=== PATIENT | female | born 1980 | race Caucasian/White ===

== ENCOUNTER 2021-07-09 16:38 | Emergency (ER) | payer OTHER ==
[~2021-07-09] VITALS: Ht 182.9 cm; Wt 152.9 kg
[~2021-07-09 16:38] MED LIST: PROAIR RESPICL90 MCG INH
[2021-07-09] MEDS ORDERED: CEPHALEXIN500 MG PO (20:17)
== END 2021-07-09 20:27 | disposition home or self-care (01) ==
LOC: ED 16:38
DX: N39.0 Urinary tract infection, site not specified (principal); F17.200 Nicotine dependence, unspecified, uncomplicated; Z88.0 Allergy status to penicillin
CPT/HCPCS: 81001; 99283

== ENCOUNTER 2021-09-02 10:55 | Emergency (ER) | payer OTHER ==
[~2021-09-02] VITALS: Ht 182.9 cm; Wt 150.2 kg
[~2021-09-02 10:55] MED LIST changes: +CEPHALEXIN500 MG PO
[2021-09-02] MEDS ORDERED: PREDNISONE20 MG PO (11:42)
== END 2021-09-02 12:11 | disposition home or self-care (01) ==
LOC: ED 10:55
DX: M54.42 Lumbago with sciatica, left side (principal); F17.200 Nicotine dependence, unspecified, uncomplicated; Z88.0 Allergy status to penicillin
CPT/HCPCS: 81001; 99284